=== PATIENT | female | born 1975 | race Caucasian/White ===

== ENCOUNTER 2022-03-04 01:43 | Inpatient (IN) ==
[2022-03-04] MEDS ORDERED: Morphine Sulfate 2 MG/ML SYRINGE IVP ONE (01:59)
[2022-03-04] MEDS ORDERED: 0.9 % Sodium Chloride 1,000 ML IVC SCH (02:00)
[2022-03-04] MEDS ORDERED: Ondansetron 4 MG/2 ML VIAL IVP ONE (02:02)
[2022-03-04 02:14] LABS: Basophils % 0.2 %; Eosinophils # 0.2 K/mcL (0.0-0.6); Eosinophils % 1.2 %; Hematocrit 46.8 % (35.3-44.9); Immature Granulocytes % 0.3 % (0-4); Lymphocytes # 1.4 K/mcL (0.6-4.6); Lymphocytes % 8.3 %; Mean Corpuscular HGB Conc 34.2 g/dL (31.6-35.5); Mean Corpuscular Hemoglobin 31.6 pg (28.0-33.3); Mean Corpuscular Volume 92.3 fL (83.0-100.0); Mean Platelet Volume 9.4 fL (9.4-12.4); Monocytes # 1.1 K/mcL (0.0-1.3); Monocytes % 6.5 %; Neutrophils # 14.1 K/mcL (1.6-8.9); Platelet Count 426 K/mcL (140-400); Red Blood Count 5.07 M/mcL (3.82-4.97); Red Cell Distribution Width 11.6 % (11.5-14.5); Segmented Neutrophils % 83.5 %; White Blood Count 16.9 K/mcL (4.3-11.1)
[2022-03-04 02:32] LABS: Alanine Aminotransferase 16 Units/L (7-52); Albumin/Globulin Ratio 2.1 (1.1-2.2); Alkaline Phosphatase 54 Units/L (34-104); Aspartate Amino Transferase 15 Units/L (13-39); BUN/Creatinine Ratio 20 (6-26); Bilirubin,Total 0.8 mg/dL (0.3-1.0); Blood Urea Nitrogen 17 mg/dL (6-20); Calcium 10.5 mg/dL (8.6-10.3); Carbon Dioxide 23 mEq/L (23-29); Chloride 98 mEq/L (98-107); Globulin 2.4 g/dL (2.4-3.5); Glucose 190 mg/dL (70-105); Lipase 24 Units/L (11-82); Osmolality,Calculated 289 (280-300); Potassium 3.2 mEq/L (3.5-5.1); Sodium 136 mEq/L (136-145); Total Protein 7.4 g/dL (6.4-8.9); eGFR For African Americans > 60 (> 60); eGFR For Non-African Americans > 60 (> 60)
[2022-03-04] MEDS ORDERED: Naloxone 0.4 MG/ML INJ IVP PRN ×2 (06:06)
[2022-03-04] MEDS ORDERED: Morphine Sulfate 2 MG/ML SYRINGE IVP PRN (06:06)
[2022-03-04] MEDS ORDERED: Ondansetron 4 MG/2 ML VIAL IVP PRN (06:06)
[2022-03-04] MEDS ORDERED: methylPREDNISolone 4 MG TABLET PO SCH (09:00)
[2022-03-04] MEDS: ARIPiprazole 5 MG TABLET PO SCH (09:15)
[2022-03-04] MEDS: PREMPRO PO SCH (09:16)
[2022-03-04] MEDS: BuPROPion XL (24 HR) 150 MG TABLET PO SCH (09:17)
[2022-03-04 09:48] LABS: Bilirubin,Urine Small (Negative); Blood,Urine Negative (Negative); Clarity,Urine Cloudy (Clear); Color,Urine Yellow (Yellow); Glucose,Urine (UA) Normal (Normal); Ketones,Urine 15 mg/dL (Negative); Leukocyte Esterase,Urine Negative (Negative); Nitrite,Urine Negative (Negative); PH,Urine 5.5 pH Units (5.0-8.0); Protein,Urine Negative (Neg-Trace); Specific Gravity,Urine >= 1.030 (1.010-1.025); Urobilinogen,Urine Normal (Normal)
[2022-03-04 10:37] LABS: Bacteria,Urine Few per hpf (None-Few); Mucus,Urine Moderate per lpf (None-Few); Squamous Epithelial Cell,Urine Moderate per hpf (None-Few); WBC,Urine 0-3 per hpf (0-3)
[2022-03-04] MEDS ORDERED: *HR* OxyCODONE/APAP 5/325 TABLET PO PRN (11:45)
[2022-03-04] MEDS: 0.9 % Sodium Chloride 1,000 ML IVC SCH (15:52)
[2022-03-04] MEDS: rOPINIRole 0.25 MG TABLET PO SCH (20:08)
[2022-03-05] MEDS: 0.9 % Sodium Chloride 1,000 ML IVC SCH ×3 (01:59→13:47)
[2022-03-05] MEDS: *HR* Enoxaparin 40 MG/0.4 ML SYRINGE SQ SCH (05:23)
[2022-03-05 07:47] LABS: Basophils % 0.2 %; Eosinophils # 0.4 K/mcL (0.0-0.6); Eosinophils % 7.8 %; Hematocrit 36.8 % (35.3-44.9); Immature Granulocytes % 0.2 % (0-4); Lymphocytes # 2.2 K/mcL (0.6-4.6); Lymphocytes % 38.5 %; Mean Corpuscular HGB Conc 32.6 g/dL (31.6-35.5); Mean Corpuscular Volume 98.1 fL (83.0-100.0); Mean Platelet Volume 9.6 fL (9.4-12.4); Monocytes # 0.5 K/mcL (0.0-1.3); Monocytes % 8.5 %; Platelet Count 227 K/mcL (140-400); Red Blood Count 3.75 M/mcL (3.82-4.97); Red Cell Distribution Width 11.9 % (11.5-14.5); Segmented Neutrophils % 44.8 %; White Blood Count 5.7 K/mcL (4.3-11.1)
[2022-03-05 07:48] LABS: Neutrophils # 2.6 K/mcL (1.6-8.9)
[2022-03-05 08:08] LABS: BUN/Creatinine Ratio 10 (6-26); Blood Urea Nitrogen 7 mg/dL (6-20); Calcium 8.2 mg/dL (8.6-10.3); Carbon Dioxide 27 mEq/L (23-29); Chloride 112 mEq/L (98-107); Glucose 95 mg/dL (70-105); Osmolality,Calculated 296 (280-300); Potassium 3.5 mEq/L (3.5-5.1); Sodium 144 mEq/L (136-145); eGFR For African Americans > 60 (> 60); eGFR For Non-African Americans > 60 (> 60)
[2022-03-05] MEDS: BuPROPion XL (24 HR) 150 MG TABLET PO SCH (10:45)
[2022-03-05] MEDS: ARIPiprazole 5 MG TABLET PO SCH (10:45)
[2022-03-05] MEDS: PREMPRO PO SCH (10:46)
[2022-03-05] MEDS: MetroNIDAZOLE 500 MG/100 ML 500 MG/100 ML BAG IVPB SCH ×2 (12:41→19:35)
[2022-03-05] MEDS: rOPINIRole 0.25 MG TABLET PO SCH (19:35)
[2022-03-06] MEDS: MetroNIDAZOLE 500 MG/100 ML 500 MG/100 ML BAG IVPB SCH ×2 (03:09→10:42)
[2022-03-06] MEDS: *HR* Enoxaparin 40 MG/0.4 ML SYRINGE SQ SCH (06:14)
[2022-03-06 07:30] VITALS: BP 104/70; PULSE 66; RESP 13; TEMP 97.9; O2SAT 100
[2022-03-06] MEDS: PREMPRO PO SCH (10:42)
[2022-03-06] MEDS: ARIPiprazole 5 MG TABLET PO SCH (10:43)
[2022-03-06] MEDS: BuPROPion XL (24 HR) 150 MG TABLET PO SCH (10:43)
== END 2022-03-06 10:55 | disposition home or self-care (01) | DRG 249 ==
LOC: INPPIK 01:43 → EMEROOPIK 01:43 → SUATTDRO 04:45 → INPPIK 05:05
PROVIDERS: ADMIT Internal Medicine; ATTEND Family Medicine